=== PATIENT | female | born 1950 | race American Indian/Alaskan Native ===

== ENCOUNTER 2016-11-20 10:12 | Observation (INO) | payer OTHER ==
[2016-11-20 10:12] VITALS: BMI 28.4
--- NOTE | 2016-11-20 11:12 | ED PDOC ---
Arrival/HPI - General Chief Complaint: Abnormal Labs Time Seen by Provider: 11/20/16 10:51 - History of Present Illness Narrative History of Present Illness (Text): 11/20/16 11:09 Patient is a 66 y/o F sent by PMD for dialysis and catheter placement. Patient reports that she has had worsening renal failure and her PMD Dr. Maynard ) requested that she came to ED. She reports history of L arm fistula that no longer works. She denies fever, chest pain, or shortness of breath. 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) - Psychiatric Hx Depression: No Hx Emotional Abuse: No Hx Physical Abuse: No Hx Substance Use: No - Past Surgical History Past Surgical History: No Previous - Suicidal Assessment Feels Threatened In Home Enviroment: No Family/Social History Family/Social History: No Known Family HX Smoking Status: Former Smoker Hx Alcohol Use: No Hx Substance Use: No Hx Substance Use Treatment: No Allergies/Home Meds Allergies/Adverse Reactions: Allergies No Known Allergies Allergy (Verified 11/06/11 11:22) Home Medications: Home Meds Medication Instructions Recorded Confirmed levETIRAcetam [Keppra] 250 mg PO DAILY 08/21/12 11/20/16 Amlodipine Besylate [Amlodipine 10 mg PO DAILY 11/20/16 11/20/16 Besilate] Aspirin [Ecotrin] 81 mg PO DAILY 11/20/16 11/20/16 Bicarbonat 10.3 10.3 gr PO TID 11/20/16 11/20/16 Iron Tabs 325 mg PO BID 11/20/16 11/20/16 Metoprolol Tartrate [Lopressor] 50 mg PO BID 11/20/16 11/20/16 Multivitamin [Multivitamin] 1 sgl PO DAILY 11/20/16 11/20/16 Sodium Polystyrene Sulfon/Sorb 15 gm NA 11/20/16 [Kionex] Vit B Cmplx 3/Folic AC/C/Biot 1 tab PO DAILY 11/20/16 11/20/16 [Vol-Care Rx] Vitamin B Complex [B Complex] 1 each PO DAILY 11/20/16 11/20/16 cloNIDine [Catapres] 0.1 mg PO ONCE 11/20/16 11/20/16 hydrALAZINE [hydralazine 50 mg PO Q6 11/20/16 11/20/16 Hydrochloride] Review of Systems - Review of Systems Constitutional: absent: Fevers Respiratory: absent: SOB, Cough, Sputum, Wheezing Cardiovascular: absent: Chest Pain, Palpitations, Edema, Calf Pain, LEBLANC, Orthopnea, Syncope Gastrointestinal: absent: Abdominal Pain, Constipation, Diarrhea, Nausea, Vomiting Genitourinary Female: absent: Dysuria Musculoskeletal: absent: Arthralgias Physical Exam Vital Signs Temp Pulse Resp BP Pulse Ox 11/20/16 10:30 98.1 F 77 16 242/103 H 98 Temperature: Afebrile Blood Pressure: Hypertensive Pulse: Regular Respiratory Rate: Normal Appearance: Positive for: Well-Appearing, Non-Toxic, Comfortable Pain Distress: None Mental Status: Positive for: Alert and Oriented X 3 - Systems Exam Head: Present: Atraumatic, Normocephalic Pupils: Present: PERRL Extroacular Muscles: Present: EOMI Conjunctiva: Present: Normal Mouth: Present: Moist Mucous Membranes Neck: Present: Normal Range of Motion Respiratory/Chest: Present: Clear to Auscultation, Good Air Exchange. No: Respiratory Distress, Accessory Muscle Use Cardiovascular: Present: Regular Rate and Rhythm, Normal S1, S2. No: Murmurs Abdomen: No: Tenderness, Distention, Rebound, Guarding Upper Extremity: Present: Normal Inspection. No: Edema Medical Decision Making ED Course and Treatment: 11/20/16 11:22 EKG shows NSR at 72bpm with left atrial enlargement and non-specific st changes. No evidence of peaked t waves 11/20/16 11:[address] Dupree. He is requesting Dr. Alex Ku place permacath through IR, with admission to hospitalist with him on renal consult 11/20/16 11:32 Interventional radiology aware that patient needs permacath placement for dialysis. 11/20/16 12:[address] Dc who accepted patient to his service. Chem pending. Labs to be redrawn in IR and then patient to be taken directly to dialysis. Dr. Maynard at bedside and dialysis orders placed. 11/20/16 12:32 11/20/16 12:33 - RAD Interpretation Radiology Orders: 11/20/16 11:32 CAR PERIPHERAL VASCULAR ORDER [VASCULAR] Stat Disposition/Present on Arrival - Present on Arrival Any Indicators Present on Arrival: No History of DVT/PE: No History of Uncontrolled Diabetes: No Urinary Catheter: No History of Decub. Ulcer: No History Surgical Site Infection Following: None - Disposition Have Diagnosis and Disposition been Completed?: Yes Diagnosis: Renal failure Disposition: HOSPITALIZED Disposition Time: 10:30 Patient Plan: Observation Condition: FAIR
--- NOTE | 2016-11-20 12:25 | CP.PCM.CON ---
History of Present Illness - History of Present Illness History of Present Illness: pt is seen and examined, full consult is dictated#[id number] 1. HTn 2. ckd-5 3. FSGS 4. met. acidosis 5. Hyperkalemia 6. anemia clotted left wrst avf and clooted left UE av graft pt agreed for perma cath will plan for hd after catheter d/w ER physician and DR dakota urbina Past Patient History - Infectious Disease Hx of Infectious Diseases: None - Past Social History Smoking Status: Former Smoker - CARDIAC Hx Hypertension: Yes - NEUROLOGICAL Hx Dizziness: Yes - RENAL Hx Chronic Kidney Disease: Yes Hx Renal Failure: Yes - HEMATOLOGICAL/ONCOLOGICAL Hx Cancer: Yes (breast) - MUSCULOSKELETAL/RHEUMATOLOGICAL Hx Falls: No - GENITOURINARY/GYNECOLOGICAL Hx Genitourinary Disorders: (left renal gland tumor removed) - PSYCHIATRIC Hx Depression: No Hx Emotional Abuse: No Hx Physical Abuse: No Hx Substance Use: No - SURGICAL HISTORY Hx Surgeries: Yes (renal gland tumor, ovarian cyst, R breast mastectomy with implant) Meds Allergies/Adverse Reactions: Allergies Allergy/AdvReac Type Severity Reaction Status Date / Time No Known Allergies Allergy Verified 11/06/11 11:22 Results - Vital Signs Recent Vital Signs: Last Vital Signs Temp 98.1 F 11/20/16 10:30 Pulse 77 11/20/16 10:30 Resp 16 11/20/16 10:30 BP 242/103 H 11/20/16 10:30 Pulse Ox 98 11/20/16 10:30 - Labs Result Diagrams: 11/20/16 12:30 11/20/16 12:00
[2016-11-20 12:27] LABS: ALB/GLOB RATIO 1.1 (1.1-1.8); BILIRUBIN,TOTAL 0.4 mg/dL (0.2-1.3); CALCIUM 9.7 mg/dL (8.4-10.5); TOTAL PROTEIN 7.1 g/dL (5.8-8.3)
[2016-11-20] MEDS ORDERED: Lidocaine 2% Inj (20ml) ONE (12:31)
[2016-11-20] MEDS ORDERED: Midazolam 2 MG/2 ML VIAL ONE ×2 (12:32→12:59)
[2016-11-20 12:41] LABS: POTASSIUM 5.7 mmol/L (3.6-5.0)
[2016-11-20 12:54] LABS: ADD MANUAL DIFF? NO
[2016-11-20 13:00] LABS: BASO # 0.02 K/mm3 (0.0-2.0); BASO % 0.3 % (0.0-3.0); EOS # 0.2 (0.0-0.7); EOS % 3.1 % (1.5-5.0); GRAN # 3.34 (1.4-6.5); GRAN % 55.4 % (50.0-68.0); HEMATOCRIT 26.3 % (36.0-48.0); LYMPH % 32.3 % (22.0-35.0); MEAN CORPUSCULAR HEMOGLOBIN 29.4 pg (25.0-35.0); MEAN CORPUSCULAR HGB CONC 32.3 g/dl (31.0-37.0); MEAN PLATELET VOLUME 8.8 fl (7.0-11.0); MONO # 0.5 (0.1-0.6); MONO % 8.9 % (1.0-6.0); PLATELET COUNT 228 10^3/uL (120.0-450.0)
[2016-11-20 13:14] LABS: INR 0.99 (0.93-1.08); PARTIAL THROMBOPLASTIN TIME 27.6 Seconds (23.7-30.8)
--- NOTE | 2016-11-20 15:12 | CARD ---
APPROVED REPORT EKG Measurement Heart [id number] <Conclusion> Normal sinus rhythm Nonspecific T wave abnormality Leftward axis
[2016-11-20 18:06] LABS: PH,URINE 7.5 (4.7-8.0); URINE BILIRUBIN NEGATIVE (NEGATIVE); URINE BLOOD TRACE-INTACT (NEGATIVE); URINE GLUCOSE (UA) NEGATIVE (NEGATIVE); URINE KETONE NEGATIVE (NEGATIVE); URINE LEUKOCYTE ESTERASE NEGATIVE Leu/uL (NEGATIVE); URINE PROTEIN 100 mg/dL (<30 mg/dL); URINE UROBILINOGEN 0.2 E.U./dL (<1 E.U./dL)
[2016-11-20 18:08] LABS: URINE APPEARANCE CLEAR (CLEAR); URINE COLOR YELLOW (YELLOW)
[2016-11-20 18:29] LABS: URINE WBC 0 - 2 /hpf (0-6)
--- NOTE | 2016-11-20 18:52 | CP.PCM.HP ---
<Erich Hayden - Last Filed: 11/20/16 18:41> History of Present Illness - History of Present Illness History of Present Illness: Pt is a 66 year old female with past medical history of CKD stage 5, tumors of kidney, HTN, breast cancer, and seizure who presents to [facility] due to malfunctioning fustula in her left upper extremity. The fistula was placed 1.5 years ago and noted to be clogged. Patient also has a left wrist AV fistula that was placed 1 year ago that was also found to be malfunctioning. Pt reports that her bellows filler advised her to come to the [facility] for perma cath placement and dialysis. Patient received right perma cath and dialysis today. She denies chest pain, shortness of breath, abdominal pain, nausea, vomiting or fever. PMH: ESRD, hx of tumors in Left kidney, HTN, Breast cancer s/p lymph node removal and breast mastectomy, ovarian tumor, seizure PSH: Right breast mastectomy, D&C Allergies: NKDA FMH: - Mother: Kidney disease - Father: Prostate Cancer - Brother: Prostate Cancer, ESRD req dialysis - Brother: Prostate Cancer, ESRD req dialysis - Brother: Lung Cancer - Sister: DM2 - Sister: DM2 Social: Tobacco: Denies, EtOH: Denies, Drugs: hx of THC, cocaine, denies IVDA Meds: Hydralazine 50mg Q6H Levitracetam 250mg Daily Vol-care tab Daily Kionex 15G/60mL Metoprolol Tartrate 50mg BID Amlodipine BEsylate 10mg Daily Clonidine HCl 0.1 mg 2 tab Q8 Iron tablet Aspirin 81mg Daily Super B complex MV MV Present on Admission - Present on Admission Any Indicators Present on Admission: No History of DVT/PE: No History of Uncontrolled Diabetes: No Urinary Catheter: No Decubitus Ulcer Present: No Review of Systems - Hematologic/Lymphatic Additional comments: Constitutional: pt denies fever, chills, generalized weakness ENT: pt denies dysphagia, otalgia, hearing deficit, rhinorrhea Eyes: pt denies sudden loss of vision, diplopia, blurred vision MSK: pt denies muscle stiffness, extremity cramping Cardio: pt denies heart murmur, cp Pulm: pt denies sob, cough, hemoptysis, wheeze GI: pt denies loss of appetite, abdominal pain, constipation, melena, v/d : pt denies burning on urination, urinary frequency, hematuria, urinary urgency Neuro: pt denies dizziness, pt denies paresis, TREVINO, paresthesia, numbness, tingling Derm: pt denies nail changes Endo: pt denies night sweats, pt denies polydipsia Psych: pt denies anxiety, depression, mood changes Past Patient History - Infectious Disease Hx of Infectious Diseases: None - Past Social History Smoking Status: Former Smoker Alcohol: None Drugs: Other (hx of THC and cocaine, denies IVDA) - CARDIAC Hx Hypertension: Yes - NEUROLOGICAL Hx Dizziness: Yes - RENAL Hx Chronic Kidney Disease: Yes Hx Renal Failure: Yes - HEMATOLOGICAL/ONCOLOGICAL Hx Cancer: Yes (breast) - MUSCULOSKELETAL/RHEUMATOLOGICAL Hx Falls: No - GENITOURINARY/GYNECOLOGICAL Hx Genitourinary Disorders: (left renal gland tumor removed) - PSYCHIATRIC Hx Depression: No Hx Emotional Abuse: No Hx Physical Abuse: No Hx Substance Use: No - SURGICAL HISTORY Hx Surgeries: Yes (renal gland tumor, ovarian cyst, R breast mastectomy with implant) Meds Allergies/Adverse Reactions: Allergies Allergy/AdvReac Type Severity Reaction Status Date / Time No Known Allergies Allergy Verified 11/06/11 11:22 Physical Exam - Additional Findings Additional findings: Vital signs as below Constitutional: a&o x 4 Head and Neck: right perma cath placed with dressing c/d/i, neck supple, no jvd , trachea midline, carotid midline, no cervical/head mass Eyes: gus, nonicteric sclera, eom intact ENT: auditory acuity grossly intact, throat not congested, no nasal deformity Cardio: rrr, no m/r/g, no carotid bruit, nml s1, s2 Pulm: no accessory muscle use, equal nml breath sounds bilaterally, ctab Abd: s/nt/nd, nbs x 4 q, no palpable masses Derm: no rashes, no ulcers Extr: No pitting edema, no cyanosis, no calf tenderness, LUE and Left forearm with AVF Neuro: cn II-XII grossly intact, ue and le 5/5 muscle strength bilaterally, no los ue, le bilaterally and core Results - Vital Signs Recent Vital Signs: Last Vital Signs Temp 98 F 11/20/16 14:09 Pulse 74 11/20/16 16:56 Resp 14 11/20/16 14:09 BP 227/92 H 11/20/16 16:56 Pulse Ox 100 11/20/16 14:09 - Labs Result Diagrams: 11/20/16 12:30 11/20/16 12:00 Labs: Laboratory Results - last 24 hr 11/20/16 11/20/16 11/20/16 12:30 12:30 12:30 WBC 6.0 RBC 2.89 L Hgb 8.5 L Hct 26.3 L MCV 91.0 MCH 29.4 MCHC 32.3 RDW 13.0 Plt Count 228 MPV 8.8 Gran % 55.4 Lymph % (Auto) 32.3 [place] % (Auto) 8.9 H Eos % (Auto) 3.1 Baso % (Auto) 0.3 Gran # 3.34 Lymph # 2.0 [place] # 0.5 Eos # 0.2 Baso # 0.02 PT 10.7 INR 0.99 APTT 27.6 Urine Color Urine Appearance Urine pH Ur Specific [place] Urine Protein Urine Glucose (UA) Urine Ketones Urine Blood Urine Nitrate Urine Bilirubin Urine Urobilinogen Ur Leukocyte Esterase Urine RBC Urine WBC Blood Type B POSITIVE Blood Type Confirm Antibody Screen Negative BBK History Checked No verified bt 11/20/16 11/20/16 12:58 17:30 WBC RBC Hgb Hct MCV MCH MCHC RDW Plt Count MPV Gran % Lymph % (Auto) [place] % (Auto) Eos % (Auto) Baso % (Auto) Gran # Lymph # [place] # Eos # Baso # PT INR APTT Urine Color Yellow Urine Appearance Clear Urine pH 7.5 Ur Specific [place] 1.015 Urine Protein 100 H Urine Glucose (UA) Negative Urine Ketones Negative Urine Blood Trace-intact H Urine Nitrate Negative Urine Bilirubin Negative Urine Urobilinogen 0.2 Ur Leukocyte Esterase Negative Urine RBC 1 - 3 Urine WBC 0 - 2 Blood Type Blood Type Confirm B POSITIVE Antibody Screen BBK History Checked Assessment & Plan - Assessment and Plan (Free Text) Assessment: Pt is a 66 year old female who presents for perma cath placement and HD Plan: 1. ESRD - Perma cath placement today - HD today, revaluation labs s/p dialysis - Case management referral - metalworker referral - Nephro following appreciate recommendations - Patient to be setup for outpatient dialysis 2. Hypertension - Amlodipine 10mg Daily - Metoprolol Tartate 50mg BID - Clonidine HCl 0.1mg 2 tabs Q8 3. Anemia - Likely 2/2 ESRD - Continue Iron supplementation - Follow up with nephro regarding rec 4. History of seizure disorder - Continue Keppra 5. GI/DVT ppx - Protonix - SCD - Date & Time Date: 11/20/16 Time: 19:03 <Mirella MARTINEZ,Elmer - Last Filed: 11/24/16 08:31> Results - Vital Signs Recent Vital Signs: Last Vital Signs Temp 97.8 F 11/22/16 00:00 Pulse 70 11/22/16 15:39 Resp 20 11/22/16 00:00 BP 146/80 11/22/16 15:39 Pulse Ox 100 11/22/16 00:00 - Labs Result Diagrams: 11/22/16 06:45 11/22/16 06:45 Attending/Attestation - Attestation I have personally seen and examined this patient.: Yes I have fully participated in the care of the patient.: Yes I have reviewed all pertinent clinical information: Yes Notes (Text): 11/24/16 08:27 Patient was seen and examined with medical research scientist. 66 F with PMH of HTN,Stage V CKD, never was on dialysis was admitted with clotted left wrist AV Fistula graft, underwent dialysis catheter placement by IR today, She is currently getting her first hemodialysis right now and is tolerating it well, Blood pressure was high in ER, relatively better controlled in dialysis, We will repeat Potassium level after hemodialysis. She can be discharged home tomarrow after dialysis plan is made. (Customer Insight Analyst [place]) Management plan was discussed in detail with patient.Education was provided.
--- NOTE | 2016-11-20 19:22 | VASCULAR ---
PROCEDURE: Ultrasound and fluoroscopic tunneled right IJ dialysis catheter. CLINICAL HISTORY: ESRD PHYSICIAN(S): Alex Ku M.D. TECHNIQUE: The relative risks and indications for the procedure were explained to the patient and informed written consent obtained. The patient was placed supine on the arteriography table and the right neck/chest was prepped and draped in the usual sterile fashion. 1% Xylocaine was used to anesthetize the skin and soft tissues at the puncture site. Conscious sedation and monitoring were provided throughout the procedure by a nurse. Under direct ultrasound guidance, the rightinternal jugular vein was punctured with a micropuncture set. A 0.035 Glidewire was advanced into the IVC. Sequential dilatation was performed with subsequent placement of a 28cm López II catheter with its tip in the right atrium. A retrograde tunnel below the right clavicle was performed. The catheter was trimmed and the hub attached. Both ports aspirate and inject easily. The catheter was secured and a dressing applied. The patient tolerated the procedure well. IMPRESSION: 1. Ultrasound and fluoroscopically placed right IJ tunneled dialysis catheter.
[2016-11-21 07:20] LABS: ADD MANUAL DIFF? NO
[2016-11-21 07:28] LABS: BASO # 0.02 K/mm3 (0.0-2.0); BASO % 0.3 % (0.0-3.0); EOS # 0.2 (0.0-0.7); EOS % 3.5 % (1.5-5.0); GRAN # 3.51 (1.4-6.5); GRAN % 57.9 % (50.0-68.0); HEMATOCRIT 27.2 % (36.0-48.0); LYMPH # 1.6 (1.2-3.4); LYMPH % 25.9 % (22.0-35.0); MEAN CELL VOLUME 90.7 fL (80.0-105.0); MEAN CORPUSCULAR HEMOGLOBIN 29.3 pg (25.0-35.0); MEAN CORPUSCULAR HGB CONC 32.4 g/dl (31.0-37.0); MEAN PLATELET VOLUME 8.5 fl (7.0-11.0); MONO # 0.8 (0.1-0.6); MONO % 12.4 % (1.0-6.0); PLATELET COUNT 214 10^3/uL (120.0-450.0); WHITE BLOOD COUNT 6.1 10^3/ul (4.5-11.0)
[2016-11-21 08:05] LABS: ALB/GLOB RATIO 1.1 (1.1-1.8); BILIRUBIN,TOTAL 0.4 mg/dL (0.2-1.3); CALCIUM 9.3 mg/dL (8.4-10.5); POTASSIUM 5.3 mmol/L (3.6-5.0); TOTAL PROTEIN 6.8 g/dL (5.8-8.3)
[2016-11-21] MEDS: Multivitamin Therapeutic Tab PO SCH (10:24)
--- NOTE | 2016-11-21 11:16 | CP.PCM.PN ---
<FenggregErich - Last Filed: 11/21/16 13:19> Subjective - Date & Time of Evaluation Date of Evaluation: 11/21/16 Time of Evaluation: 11:13 - Subjective Subjective: Patient is s/e at bedside on GMF. No acute events reported overnight. Pt has no complaints at this time. Pt denies chest pain, palpatations, shortness of breath , muscle weakness, nausea, vomitng and fever. Will be discussing with CM and SW placement for patient's continued HD outpatient. Objective - Vital Signs/Intake and Output Vital Signs (last 24 hours): Temp Pulse Resp BP Pulse Ox 98.3 F 70 16 220/120 H 94 L 11/21/16 07:59 11/21/16 10:23 11/21/16 07:59 11/21/16 10:24 11/21/16 07:59 Intake and Output: 11/21/16 11/21/16 06:59 18:59 Intake Total 120 Balance 120 - Medications Medications: Current Medications Acetaminophen (Tylenol 325mg Tab) 650 mg PO Q4 PRN PRN Reason: Pain, Mild (1-3) Last Admin: 11/21/16 05:47 Dose: 650 mg Amlodipine Besylate (Norvasc) 10 mg PO DAILY [facility] Last Admin: 11/21/16 10:24 Dose: 10 mg Aspirin (Ecotrin) 81 mg PO DAILY [facility] Last Admin: 11/21/16 10:22 Dose: 81 mg Clonidine HCl (Catapres) 0.2 mg PO TID [facility] Ferrous Sulfate (Feosol) 324 mg PO BID [facility] Last Admin: 11/21/16 10:22 Dose: 324 mg Hydralazine HCl (Apresoline) 50 mg PO Q6 [facility] Last Admin: 11/21/16 05:47 Dose: 50 mg Levetiracetam (Keppra) 250 mg PO DAILY [facility] Last Admin: 11/21/16 10:23 Dose: 250 mg Metoprolol Tartrate (Lopressor) 50 mg PO BID [facility] Last Admin: 11/21/16 10:23 Dose: 50 mg Multivitamins (Thera Tab) 1 tab PO DAILY [facility] Last Admin: 11/21/16 10:24 Dose: 1 tab Sodium Bicarbonate (Sodium Bicarbonate Tab) 650 mg PO TID [facility] Last Admin: 11/21/16 10:24 Dose: 650 mg - Labs Labs: 11/21/16 07:10 11/21/16 07:10 PT 10.7 Seconds (9.9-11.8) 11/20/16 12:30 INR 0.99 (0.93-1.08) 11/20/16 12:30 APTT 27.6 Seconds (23.7-30.8) 11/20/16 12:30 - Head Exam Head Exam: ATRAUMATIC, NORMAL INSPECTION - Eye Exam Eye Exam: EOMI, PERRL - ENT Exam ENT Exam: Mucous Membranes Moist, Normal Exam - Neck Exam Additional comments: right perma cath placed with dressing c/d/i - Respiratory Exam Respiratory Exam: Clear to Ausculation Bilateral, NORMAL BREATHING PATTERN - Cardiovascular Exam Cardiovascular Exam: REGULAR RHYTHM, +S1, +S2, Murmur (grade 3/6 systolic ejection murmur) - Rectal Exam Rectal Exam: Deferred - Extremities Exam Extremities Exam: Full ROM, Normal Capillary Refill, Normal Inspection - Neurological Exam Neurological Exam: Alert, Awake, CN II-XII Intact, Oriented x3 Neuro motor strength exam: Left Upper Extremity: 5, Right Upper Extremity: 5, Left Lower Extremity: 5, Right Lower Extremity: 5 - Psychiatric Exam Psychiatric exam: Normal Affect, Normal Mood - Skin Skin Exam: Dry, Normal Color, Warm Assessment and Plan - Assessment and Plan (Free Text) Assessment: Pt is a 66 year old female who presents for perma cath placement and HD Plan: 1. ESRD - Perma cath placement POD#1 - Lacquer Dipping Machine Operator following with recommendations for HD outpatient - notes indicate patient to receive HD outpatient at [facility] [address] - Low potassium diet - revaluation labs s/p dialysis patient potassium 5.2 - Case management referral - drug abuse social worker referral 2. Hypertension - Amlodipine 10mg Daily - Metoprolol Tartate 50mg BID - Clonidine HCl 0.1mg 2 tabs Q8 3. Anemia - Likely 2/2 ESRD - Continue Iron supplementation 4. History of seizure disorder - Continue Keppra 5. GI/DVT ppx - Protonix - SCD <Facundo Diggs - Last Filed: 11/22/16 16:27> Objective - Vital Signs/Intake and Output Vital Signs (last 24 hours): Temp Pulse Resp BP Pulse Ox 97.8 F 70 20 146/80 100 11/22/16 00:00 11/22/16 15:39 11/22/16 00:00 11/22/16 15:39 11/22/16 00:00 Intake and Output: 11/22/16 11/22/16 06:59 18:59 Intake Total 310 480 Balance 310 480 - Medications Medications: Current Medications Acetaminophen (Tylenol 325mg Tab) 650 mg PO Q4 PRN PRN Reason: Pain, Mild (1-3) Last Admin: 11/22/16 15:23 Dose: 650 mg Amlodipine Besylate (Norvasc) 10 mg PO DAILY [facility] Last Admin: 11/22/16 10:30 Dose: 10 mg Aspirin (Ecotrin) 81 mg PO DAILY [facility] Last Admin: 11/22/16 10:30 Dose: 81 mg Clonidine HCl (Catapres) 0.2 mg PO TID [facility] Last Admin: 11/22/16 15:39 Dose: 0.2 mg Ferrous Sulfate (Feosol) 324 mg PO BID [facility] Last Admin: 11/22/16 10:29 Dose: 324 mg Hydralazine HCl (Apresoline) 100 mg PO TID [facility] Last Admin: 11/22/16 15:38 Dose: 100 mg Levetiracetam (Keppra) 250 mg PO DAILY [facility] Last Admin: 11/22/16 10:30 Dose: 250 mg Metoprolol Tartrate (Lopressor) 50 mg PO BID [facility] Last Admin: 11/22/16 10:30 Dose: 50 mg Multivitamins (Thera Tab) 1 tab PO DAILY [facility] Last Admin: 11/22/16 10:29 Dose: 1 tab - Labs Labs: 11/22/16 06:45 11/22/16 06:45 PT 10.7 Seconds (9.9-11.8) 11/20/16 12:30 INR 0.99 (0.93-1.08) 11/20/16 12:30 APTT 27.6 Seconds (23.7-30.8) 11/20/16 12:30 Attending/Attestation - Attestation I have personally seen and examined this patient.: Yes I have fully participated in the care of the patient.: Yes I have reviewed all pertinent clinical information, including history, physical exam and plan: Yes Notes (Text): 11/22/16 16:23 attending note; Patient seen and examined with resident. Patient is a 66-year-old female admitted with clotted AVF. patient got right perma cath for hemodialysis. patient had hemodialysis yesterday. Hypertension; Medication adjusted. Started on hydralazine. Continue clonidine. Plan for dialysis tomorrow. Case discussed with supervisor case loading/social work assistant for outpatient hemodialysis arrangements. Follow-up with nephrology Dr. Dupree. follow-up with PMD .
--- NOTE | 2016-11-21 12:24 | CP.PCM.PN ---
Subjective - Date & Time of Evaluation Date of Evaluation: 11/21/16 Time of Evaluation: 12:22 - Subjective Subjective: pt seen and examined, follow up consult is dictated #[id number] for hd in am low k+ diet social service to make referral to HD at [facility], [facility] or [facility] dialysis center if insurance approves Objective - Vital Signs/Intake and Output Vital Signs (last 24 hours): Temp Pulse Resp BP Pulse Ox 98.3 F 69 16 210/110 H 94 L 11/21/16 07:59 11/21/16 11:38 11/21/16 07:59 11/21/16 11:38 11/21/16 07:59 Intake and Output: 11/21/16 11/21/16 06:59 18:59 Intake Total 120 Balance 120 - Medications Medications: Current Medications Acetaminophen (Tylenol 325mg Tab) 650 mg PO Q4 PRN PRN Reason: Pain, Mild (1-3) Last Admin: 11/21/16 05:47 Dose: 650 mg Amlodipine Besylate (Norvasc) 10 mg PO DAILY [facility] Last Admin: 11/21/16 10:24 Dose: 10 mg Aspirin (Ecotrin) 81 mg PO DAILY [facility] Last Admin: 11/21/16 10:22 Dose: 81 mg Clonidine HCl (Catapres) 0.2 mg PO TID [facility] Last Admin: 11/21/16 11:38 Dose: 0.2 mg Ferrous Sulfate (Feosol) 324 mg PO BID [facility] Last Admin: 11/21/16 10:22 Dose: 324 mg Hydralazine HCl (Apresoline) 50 mg PO Q6 [facility] Last Admin: 11/21/16 05:47 Dose: 50 mg Levetiracetam (Keppra) 250 mg PO DAILY [facility] Last Admin: 11/21/16 10:23 Dose: 250 mg Metoprolol Tartrate (Lopressor) 50 mg PO BID [facility] Last Admin: 11/21/16 10:23 Dose: 50 mg Multivitamins (Thera Tab) 1 tab PO DAILY [facility] Last Admin: 11/21/16 10:24 Dose: 1 tab Sodium Bicarbonate (Sodium Bicarbonate Tab) 650 mg PO TID [facility] Last Admin: 11/21/16 10:24 Dose: 650 mg - Labs Labs: 11/21/16 07:10 11/21/16 07:10 PT 10.7 Seconds (9.9-11.8) 11/20/16 12:30 INR 0.99 (0.93-1.08) 11/20/16 12:30 APTT 27.6 Seconds (23.7-30.8) 11/20/16 12:30
[2016-11-21 20:46] VITALS: TEMP 97.8
--- NOTE | 2016-11-22 04:57 | CON ---
RENAL CONSULTATION LOCATION: The patient is located in room 566, bed 2. REQUESTED BY: Facundo Diggs MD and Saira Dc MD. REASON FOR FOLLOWUP: End stage renal disease, continuous on the hemodialysis. HISTORY OF PRESENT ILLNESS: Mrs. Adams is a 66-year-old elderly female with a past medical history significant for hypertension, end-stage renal disease, anemia, metabolic acidosis, and hyperkalemia, was admitted with worsening renal function and failed left upper extremity AV graft and AV fistula, which was placed about 6 to 12 months ago. The patient underwent PermaCath placement yesterday and started on hemodialysis. The patient is feeling better, denies any headache, dizziness. Denies any chest pain, palpitation. Denies any nausea, vomiting, diarrhea. No abdominal pain. Complains of slight pain at the PermaCath site. PHYSICAL EXAMINATION: VITAL SIGNS: As follows, blood pressure this morning 139/86, pulse 65, respirations 16, temperature 98.3, saturations 94%, height 5 feet 2.1 inch and weight is 177 pounds. GENERAL: Mrs. Adams is a 66-year-old female, moderately built, moderately nourished, not in distress. HEENT: Pupils normal, react to light and accommodation. Conjunctivae pink. Sclerae anicteric. Tongue is moist. Trachea is midline. LUNGS: Symmetry on both sides, bilateral breath sounds present and clear on auscultation. CARDIOVASCULAR SYSTEM: [place] at the fifth intercostal space, midclavicular line, S1 and S2 audible. No murmur or gallop. ABDOMEN: Normal in appearance. Soft and tympanic. No guarding. No rigidity. No hepatosplenomegaly. CENTRAL NERVOUS SYSTEM: The patient is alert, awake, and oriented x3. Nonfocal neuro examination. Cranial nerves II through XII grossly intact. Sensory and motor system is within normal limits. EXTREMITIES: No cyanosis. No clubbing. No edema. CURRENT MEDICATIONS: Include as follows; hydralazine 50 mg p.o. q.6 hours, clonidine 0.2 mg p.o. t.i.d., Ecotrin 81 mg p.o. daily, Feosol 325 mg p.o. b.i.d, Keppra 250 mg p.o. daily, Lopressor 50 mg p.o. b.i.d, Norvasc 10 mg daily, sodium bicarbonate 650 mg t.i.d., multivitamin 1 tablet p.o. daily and Tylenol 650 mg p.o. q.6 hours. LABORATORY DATA: Includes as follows; as of 11/21/2016, WBC 6.1, hemoglobin 8.8, hematocrit 27.2, platelets 214. Sodium 140, potassium 5.3, chloride 103, CO2 of 27, BUN 47, creatinine 5.2, glucose is 100, calcium 9.3. Total bilirubin 0.4, AST is 30, ALT is 24, alkaline phosphate is 67, total protein 6.8, albumin is 3.6. Urinalysis, yellow, clear and pH is 7.5, specific gravity 1.015, protein 100,glucose negative, ketones negative, blood trace, nitrites negative, bilirubin negative, urobilinogen is 0.2, leukocyte esterase negative. RBC 123, WBC 0 to 2. Hepatitis B surface antigen is negative, surface antibody is negative, hepatitis B core antibody is negative, hepatitis C antibody is negative. ASSESSMENT AND PLAN: In summary, Mrs. Adams is a 66-year-old elderly obese female with hypertension, chronic kidney disease stage V with worsening renal function, hyperkalemia, metabolic acidosis, anemia and secondary hyperparathyroidism, started on hemodialysis yesterday. 1. End-stage renal disease, secondary focal segmental glomerulosclerosis. Continue on hemodialysis 3 times a week. 2. Hypertension, blood pressure still uncontrolled. Continue Norvasc, Lopressor, hydralazine and clonidine, and titrate clonidine to 0.3 mg p.o. q.8 hours, to keep blood pressure between 130 to 140. 3. Anemia, secondary to renal failure. We will check iron, TIBC, ferritin level during dialysis. We will continue Epogen 3 times a week during dialysis. Requested as per the patient to send papers to [facility] and [facility]. The patient is agreeable to go to [facility] at this time. Also advised a low-sodium, low-potassium diet. We will follow with you. Thank you for allowing me to participate in your patient's care. Jorge L Maynard MD [facility] # [id number] MTDD
[2016-11-22] MEDS ORDERED: Darbepoetin Alfa 60 mcg/ml Inj SC ONE (06:27)
[2016-11-22 07:16] LABS: ADD MANUAL DIFF? NO
[2016-11-22 07:23] LABS: BASO # 0.02 K/mm3 (0.0-2.0); BASO % 0.3 % (0.0-3.0); EOS # 0.2 (0.0-0.7); EOS % 3.5 % (1.5-5.0); GRAN # 2.71 (1.4-6.5); GRAN % 45.6 % (50.0-68.0); HEMATOCRIT 26.3 % (36.0-48.0); LYMPH # 2.2 (1.2-3.4); LYMPH % 37.3 % (22.0-35.0); MEAN CORPUSCULAR HEMOGLOBIN 29.1 pg (25.0-35.0); MEAN CORPUSCULAR HGB CONC 31.9 g/dl (31.0-37.0); MEAN PLATELET VOLUME 8.8 fl (7.0-11.0); MONO # 0.8 (0.1-0.6); MONO % 13.3 % (1.0-6.0); PLATELET COUNT 196 10^3/uL (120.0-450.0)
[2016-11-22 07:32] LABS: BILIRUBIN,TOTAL 0.4 mg/dL (0.2-1.3); CALCIUM 9.3 mg/dL (8.4-10.5); POTASSIUM 4.9 mmol/L (3.6-5.0); TOTAL PROTEIN 6.7 g/dL (5.8-8.3)
--- NOTE | 2016-11-22 07:46 | CP.PCM.PN ---
<Erich Hayden - Last Filed: 11/22/16 07:48> Subjective - Date & Time of Evaluation Date of Evaluation: 11/22/16 Time of Evaluation: 07:46 - Subjective Subjective: Patient s/e at bedside on F this AM. No acute events overnight. Patient is resting comfortably. No complaints at this time. Patient denies chest pain, shortness of breath, fever, neck pain, weakness and headache. Patient's discharge is pending placement at [facility] in [place] for scheduled outpatient HD. Objective - Vital Signs/Intake and Output Vital Signs (last 24 hours): Temp Pulse Resp BP Pulse Ox 97.8 F 78 18 147/80 98 11/21/16 16:00 11/22/16 05:32 11/21/16 16:00 11/22/16 05:32 11/21/16 16:00 Intake and Output: 11/22/16 11/22/16 06:59 18:59 Intake Total 310 Balance 310 - Medications Medications: Current Medications Acetaminophen (Tylenol 325mg Tab) 650 mg PO Q4 PRN PRN Reason: Pain, Mild (1-3) Last Admin: 11/21/16 05:47 Dose: 650 mg Amlodipine Besylate (Norvasc) 10 mg PO DAILY [facility] Last Admin: 11/21/16 10:24 Dose: 10 mg Aspirin (Ecotrin) 81 mg PO DAILY [facility] Last Admin: 11/21/16 10:22 Dose: 81 mg Clonidine HCl (Catapres) 0.2 mg PO TID [facility] Last Admin: 11/21/16 18:01 Dose: 0.2 mg Ferrous Sulfate (Feosol) 324 mg PO BID [facility] Last Admin: 11/21/16 18:01 Dose: 324 mg Hydralazine HCl (Apresoline) 50 mg PO Q6 [facility] Last Admin: 11/22/16 05:32 Dose: 50 mg Levetiracetam (Keppra) 250 mg PO DAILY [facility] Last Admin: 11/21/16 10:23 Dose: 250 mg Metoprolol Tartrate (Lopressor) 50 mg PO BID [facility] Last Admin: 11/21/16 18:03 Dose: 50 mg Multivitamins (Thera Tab) 1 tab PO DAILY [facility] Last Admin: 11/21/16 10:24 Dose: 1 tab - Labs Labs: 11/22/16 06:45 11/22/16 06:45 PT 10.7 Seconds (9.9-11.8) 11/20/16 12:30 INR 0.99 (0.93-1.08) 11/20/16 12:30 APTT 27.6 Seconds (23.7-30.8) 11/20/16 12:30 - Head Exam Head Exam: ATRAUMATIC, NORMAL INSPECTION - Eye Exam Eye Exam: EOMI, Normal appearance - ENT Exam ENT Exam: Mucous Membranes Moist, Normal Exam - Neck Exam Neck Exam: Full ROM, Normal Inspection - Respiratory Exam Respiratory Exam: Clear to Ausculation Bilateral, NORMAL BREATHING PATTERN - Cardiovascular Exam Cardiovascular Exam: REGULAR RHYTHM, +S1, +S2. absent: JVD - GI/Abdominal Exam GI & Abdominal Exam: Soft, Normal Bowel Sounds - Rectal Exam Rectal Exam: Deferred - Extremities Exam Extremities Exam: Full ROM, Normal Capillary Refill, Normal Inspection - Neurological Exam Neurological Exam: Alert, Awake, CN II-XII Intact, Oriented x3 Neuro motor strength exam: Left Upper Extremity: 5, Right Upper Extremity: 5, Left Lower Extremity: 5, Right Lower Extremity: 5 - Psychiatric Exam Psychiatric exam: Normal Affect, Normal Mood - Skin Skin Exam: Dry, Warm Additional comments: right perma cath placement with dressing c/d/i Assessment and Plan (1) Renal failure Status: Acute (2) Hypertensive heart AND renal disease Status: Active - Assessment and Plan (Free Text) Assessment: Pt is a 66 year old female who presents for perma cath placement and HD Plan: 1. ESRD - Perma cath placement POD#2 - [employer] following with recommendations for HD outpatient - notes indicate patient to receive HD outpatient at [facility] av - Low potassium diet - Case management referral - construction ironworker referral 2. Hypertension - Amlodipine 10mg Daily - Metoprolol Tartate 50mg BID - Clonidine HCl 0.1mg 2 tabs Q8 3. Anemia - Likely 2/2 ESRD - Continue Iron supplementation 4. History of seizure disorder - Continue Keppra 5. GI/DVT ppx - Protonix - SCD dspo: Patient is awating placement at outpatient dialysis unit at [facility] in [place]. She will be scheduled for dialysis at [facility] with planned follow up with her route jumper outpatient. <Facundo Diggs - Last Filed: 11/23/16 07:38> Objective - Vital Signs/Intake and Output Vital Signs (last 24 hours): Temp Pulse Resp BP Pulse Ox 97.8 F 70 20 146/80 100 11/22/16 00:00 11/22/16 15:39 11/22/16 00:00 11/22/16 15:39 11/22/16 00:00 - Labs Labs: 11/22/16 06:45 11/22/16 06:45 PT 10.7 Seconds (9.9-11.8) 11/20/16 12:30 INR 0.99 (0.93-1.08) 11/20/16 12:30 APTT 27.6 Seconds (23.7-30.8) 11/20/16 12:30 Attending/Attestation - Attestation I have personally seen and examined this patient.: Yes I have fully participated in the care of the patient.: Yes I have reviewed all pertinent clinical information, including history, physical exam and plan: Yes Notes (Text): 11/23/16 07:36 attending note; Patient seen and examined in dialysis unit. Patient is a 66-year-old female admitted with Malfunctioning AVF. patient got right perma cath for hemodialysis. patient had hemodialysis today. Outpatient hemodialysis arranged for Sunday, and Sunday at [facility]. Hypertension; Medication adjusted. Started on hydralazine. Continue clonidine. Medication prescription called in to the family pharmacy at [facility]. [phone] as per patient's request. Case discussed with shoe parts caser/renal social worker in detail for discharge planning. Follow-up with nephrology Dr. Dupree. follow-up with PMD . Diagnosis; End-stage renal disease on dialysis Right permacath placement Malfunctioning AV fistula Hypertension Anemia
[2016-11-22 08:25] VITALS: RESP 20; O2SAT 100
[2016-11-22] MEDS: Multivitamin Therapeutic Tab PO SCH (10:29)
[2016-11-22] MEDS ORDERED: Darbepoetin Alfa 60 mcg/ml Inj IVP ONE (12:36)
[2016-11-22 15:41] VITALS: BP 146/80; PULSE 70
--- NOTE | 2016-11-22 16:46 | CP.PCM.PN ---
Subjective - Date & Time of Evaluation Date of Evaluation: 11/22/16 Time of Evaluation: 16:46 - Subjective Subjective: pt seen nad examined, follow up consult is dictated#[id number] stable hd tx Objective - Vital Signs/Intake and Output Vital Signs (last 24 hours): Temp Pulse Resp BP Pulse Ox 97.8 F 70 20 146/80 100 11/22/16 00:00 11/22/16 15:39 11/22/16 00:00 11/22/16 15:39 11/22/16 00:00 Intake and Output: 11/22/16 11/22/16 06:59 18:59 Intake Total 310 480 Balance 310 480 - Medications Medications: Current Medications Acetaminophen (Tylenol 325mg Tab) 650 mg PO Q4 PRN PRN Reason: Pain, Mild (1-3) Last Admin: 11/22/16 15:23 Dose: 650 mg Amlodipine Besylate (Norvasc) 10 mg PO DAILY [facility] Last Admin: 11/22/16 10:30 Dose: 10 mg Aspirin (Ecotrin) 81 mg PO DAILY [facility] Last Admin: 11/22/16 10:30 Dose: 81 mg Clonidine HCl (Catapres) 0.2 mg PO TID [facility] Last Admin: 11/22/16 15:39 Dose: 0.2 mg Ferrous Sulfate (Feosol) 324 mg PO BID [facility] Last Admin: 11/22/16 10:29 Dose: 324 mg Hydralazine HCl (Apresoline) 100 mg PO TID [facility] Last Admin: 11/22/16 15:38 Dose: 100 mg Levetiracetam (Keppra) 250 mg PO DAILY [facility] Last Admin: 11/22/16 10:30 Dose: 250 mg Metoprolol Tartrate (Lopressor) 50 mg PO BID [facility] Last Admin: 11/22/16 10:30 Dose: 50 mg Multivitamins (Thera Tab) 1 tab PO DAILY [facility] Last Admin: 11/22/16 10:29 Dose: 1 tab - Labs Labs: 11/22/16 06:45 11/22/16 06:45 PT 10.7 Seconds (9.9-11.8) 11/20/16 12:30 INR 0.99 (0.93-1.08) 11/20/16 12:30 APTT 27.6 Seconds (23.7-30.8) 11/20/16 12:30
--- NOTE | 2016-11-23 03:09 | CON ---
RENAL CONSULTATION The patient is located in room 566, bed #2. REQUESTED BY: Facundo Diggs MD REASON FOR RENAL FOLLOWUP: End-stage renal disease, continuation of the hemodialysis. HISTORY OF PRESENT ILLNESS: Mrs. Adams is 66 years old elderly female with a history of hypertension, CKD 5, anemia, metabolic acidosis, hyperkalemia was admitted with the worsened renal function with failed AV graft and AV fistula on the left upper extremity and agreed for hemodialysis and PermCath placement. The patient underwent PermCath placement on Sunday and started on hemodialysis on Sunday. The patient was accepted for outpatient hemodialysis at [facility]. The patient is feeling better, not in acute distress. No complaints. No chest pain, no palpitation. No fever. No cough. PHYSICAL EXAMINATION: VITAL SIGNS: As follows, blood pressure 146/80, pulse 70, respirations 20 and temperature 97.6. GENERAL: Mrs. Adams is 66 years old female, moderately-built, moderately-nourished, not in acute distress. HEENT: Pupils are normal, reactive to light and accommodation. Conjunctivae pink. Sclerae anicteric. Tongue is moist. Trachea is midline. LUNGS: Symmetry on both sides, bilateral breath sounds present and clear on auscultation. CARDIOVASCULAR SYSTEM: [place] at the fifth intercostal space, midclavicular line, S1 and S2 audible. No murmur or gallop. ABDOMEN: Normal in appearance. Soft and tympanic. No guarding. No rigidity. No hepatosplenomegaly. CENTRAL NERVOUS SYSTEM: The patient is alert, awake, and oriented x3. Nonfocal on examination. Cranial nerves II through XII grossly intact. Sensory and motor system is within normal limits. EXTREMITIES: No cyanosis. No clubbing. No edema. CURRENT MEDICATIONS: Includes as follows; Nephrocaps 1 tablet daily, iron tablet 325 mg p.o. b.i.d., aspirin 81 mg daily, amlodipine 10 mg daily, metoprolol 50 mg p.o. b.i.d., hydralazine 100 mg p.o. t.i.d. and clonidine 0.2 mg p.o. t.i.d. LABORATORY DATA: Includes as follows; as of 11/22/2016, WBC 6, hemoglobin 8.1, hematocrit 26.3 and platelets 196. Sodium 138, potassium 4.9, chloride 102, CO2 of 25, BUN 65, creatinine 6.6, glucose 104 and calcium 9.3. Total bilirubin 0.4, AST 28, ALT 25, alkaline phosphate 59, total protein 6.7 and albumin is 3.4. Hepatitis B surface antigen is negative, surface antibody is negative, core antibody is negative and hepatitis C antibody is negative. ASSESSMENT: In summary, Mrs. Adams is 66 years old elderly female with hypertension, focal segmental glomerulosclerosis renal failure, anemia, metabolic acidosis, hyperkalemia, secondary hyperparathyroidism, started on hemodialysis on 11/20/2016. The patient underwent hemodialysis today without any complication. 1. End-stage renal disease, continue hemodialysis three times a week, Sunday, Sunday and Sunday. The patient will start next dialysis on Sunday at outpatient dialysis center. 2. Hypertension. Blood pressure is stable. Continue her current medications, metoprolol, Norvasc, hydralazine and clonidine. 3. Anemia secondary to renal failure. We will continue Epogen or Mircera as an outpatient. 4. Secondary hyperparathyroidism. We will monitor PTH and calcium level and vitamin D as needed. We will follow with you. Thank you for allow me to participate in your patient's care. The patient can be discharge from the renal stand point and will followup in outpatient dialysis unit on Sunday. Jorge L Maynard MD
--- NOTE | 2016-11-24 19:28 | CP.PCM.DIS ---
<FengemmanuelleErich - Last Filed: 11/24/16 19:25> Provider - Provider Date of Admission: 11/20/16 12:28 Attending physician: Facundo Diggs MD Primary care physician: Colby Norman MD Time Spent in preparation of Discharge (in minutes): 30 Diagnosis - Discharge Diagnosis (1) Renal failure Status: Acute (2) Hypertensive heart AND renal disease Status: Active Hospital Course - Lab Results Lab Results: Micro Results 11/20/16 17:30 Urine,Random Urine Culture - Final No Growth (<1,000 CFU/ML) Most Recent Lab Values WBC 6.0 10^3/ul (4.5-11.0) 11/22/16 06:45 RBC 2.89 10^6/uL (3.5-6.1) L 11/22/16 06:45 Hgb 8.4 gm/dL (12.0-16.0) L 11/22/16 06:45 Hct 26.3 % (36.0-48.0) L 11/22/16 06:45 MCV 91.0 fL (80.0-105.0) 11/22/16 06:45 MCH 29.1 pg (25.0-35.0) 11/22/16 06:45 MCHC 31.9 g/dl (31.0-37.0) 11/22/16 06:45 RDW 13.0 % (11.5-14.5) 11/22/16 06:45 Plt Count 196 10^3/uL (120.0-450.0) 11/22/16 06:45 MPV 8.8 fl (7.0-11.0) 11/22/16 06:45 Gran % 45.6 % (50.0-68.0) L 11/22/16 06:45 Lymph % (Auto) 37.3 % (22.0-35.0) H 11/22/16 06:45 [place] % (Auto) 13.3 % (1.0-6.0) H 11/22/16 06:45 Eos % (Auto) 3.5 % (1.5-5.0) 11/22/16 06:45 Baso % (Auto) 0.3 % (0.0-3.0) 11/22/16 06:45 Gran # 2.71 (1.4-6.5) 11/22/16 06:45 Lymph # 2.2 (1.2-3.4) 11/22/16 06:45 [place] # 0.8 (0.1-0.6) H 11/22/16 06:45 Eos # 0.2 (0.0-0.7) 11/22/16 06:45 Baso # 0.02 K/mm3 (0.0-2.0) 11/22/16 06:45 PT 10.7 Seconds (9.9-11.8) 11/20/16 12:30 INR 0.99 (0.93-1.08) 11/20/16 12:30 APTT 27.6 Seconds (23.7-30.8) 11/20/16 12:30 Sodium 138 mmol/L (132-148) 11/22/16 06:45 Potassium 4.9 mmol/L (3.6-5.0) 11/22/16 06:45 Chloride 102 mmol/L (98-107) 11/22/16 06:45 Carbon Dioxide 25 mmol/L (21-33) 11/22/16 06:45 Anion Gap 16 (10-20) 11/22/16 06:45 BUN 65 mg/dL (7-21) H 11/22/16 06:45 Creatinine 6.6 mg/dL (0.5-1.4) H 11/22/16 06:45 Est GFR ( Amer) 8 11/22/16 06:45 Est GFR (Non-Af Amer) 6 11/22/16 06:45 Random Glucose 104 mg/dL (70-110) 11/22/16 06:45 Calcium 9.3 mg/dL (8.4-10.5) 11/22/16 06:45 Total Bilirubin 0.4 mg/dL (0.2-1.3) 11/22/16 06:45 AST 28 U/L (15-39) 11/22/16 06:45 ALT 25 U/L (7-56) 11/22/16 06:45 Alkaline Phosphatase 59 U/L (38-133) 11/22/16 06:45 Total Protein 6.7 g/dL (5.8-8.3) 11/22/16 06:45 Albumin 3.4 g/dL (3.0-4.8) 11/22/16 06:45 Globulin 3.3 gm/dL 11/22/16 06:45 Albumin/Globulin Ratio 1.0 (1.1-1.8) L 11/22/16 06:45 PTH Intact Whole Molec 115 pg/mL (14-64) H 11/20/16 12:30 Urine Color Yellow (YELLOW) 11/20/16 17:30 Urine Appearance Clear (CLEAR) 11/20/16 17:30 Urine pH 7.5 (4.7-8.0) 11/20/16 17:30 Ur Specific [place] 1.015 (1.005-1.035) 11/20/16 17:30 Urine Protein 100 mg/dL (<30 mg/dL) H 11/20/16 17:30 Urine Glucose (UA) Negative mg/dL (NEGATIVE) 11/20/16 17:30 Urine Ketones Negative mg/dL (NEGATIVE) 11/20/16 17:30 Urine Blood Trace-intact (NEGATIVE) H 11/20/16 17:30 Urine Nitrate Negative (NEGATIVE) 11/20/16 17:30 Urine Bilirubin Negative (NEGATIVE) 11/20/16 17:30 Urine Urobilinogen 0.2 E.U./dL (<1 E.U./dL) 11/20/16 17:30 Ur Leukocyte Esterase Negative Brad/uL (NEGATIVE) 11/20/16 17:30 Urine RBC 1 - 3 /hpf (0-2) 11/20/16 17:30 Urine WBC 0 - 2 /hpf (0-6) 11/20/16 17:30 Hep Bs Antigen Negative (NEGATIVE) 11/20/16 12:30 Hep Bs Antibody Negative (NEGATIVE) 11/20/16 12:30 Hep B Core IgM Ab Negative (NEGATIVE) 11/20/16 12:30 Hepatitis C Antibody Negative (NEGATIVE) 11/20/16 12:30 Blood Type B POSITIVE 11/20/16 12:30 Blood Type Confirm B POSITIVE 11/20/16 12:58 Antibody Screen Negative 11/20/16 12:30 BBK History Checked No verified bt 11/20/16 12:30 - Hospital Course Hospital Course: Ms. Adams is a 66 year old female with past medical history of ESRD, HTN, seizure, and hx of right sided renal tumor was sent to the emergency department by her android platform developer Dr. Maynard for hemodialysis due to failed AV vistulas placed in the past. The patient presented to the [facility] ED and was found to have elevated potassium. The patient received a right IJ tunnel dialysis catheter for HD. She then underwent 1 hour of HD for which she tolerated well. She received another session of HD while in the hospital and was discharged with plan to follow up with [facility] [place] [facility]. The patient was discharged with stable vital signs and hemodynamically stable. Discharge Exam - Head Exam Head Exam: ATRAUMATIC, NORMAL INSPECTION - Eye Exam Eye Exam: EOMI, PERRL - Respiratory Exam Respiratory Exam: NORMAL BREATHING PATTERN, UNREMARKABLE - Cardiovascular Exam Cardiovascular Exam: REGULAR RHYTHM, +S1, +S2 - GI/Abdominal Exam GI & Abdominal Exam: Normal Bowel Sounds, Unremarkable - Neurological Exam Neurological exam: Alert, CN II-XII Intact, Normal Gait, Oriented x3 - Psychiatric Exam Psychiatric exam: Normal Affect, Normal Mood - Skin Skin Exam: Dry, Normal Color, Warm Discharge Plan - Discharge Medications Prescriptions: cloNIDine [Catapres] 0.2 mg PO TID #90 tab hydrALAZINE [Apresoline] 100 mg PO TID #90 tab - Follow Up Plan Condition: FAIR Disposition: HOME/ ROUTINE Instructions: Chronic Kidney Disease (DC), Chronic Kidney Disease (GEN), Renal Failure Diet (DC), Hemodialysis for Acute Renal Failure (DC), Perma-cath Placement (DC), Perma-cath Placement (GEN) Additional Instructions: Please follow up with your android platform developer upon discharge. Please follow up with hemodialysis after discharge. Please continue to take medication as prescribed. Keep perma cath site clean and dry with appropriate bandaging. Return to hospital if perma cath is blocked and unable to have hemodialysis or if you develop any symptoms of infection including fever, chills, nausea or vomiting. Referrals: Colby Norman MD [Primary Care Provider] - <Facundo Diggs - Last Filed: 11/25/16 15:22> Provider - Provider Date of Admission: 11/20/16 12:28 Attending physician: Facundo Diggs MD Primary care physician: Colby Norman MD Hospital Course - Lab Results Lab Results: Micro Results 11/20/16 17:30 Urine,Random Urine Culture - Final No Growth (<1,000 CFU/ML) Most Recent Lab Values WBC 6.0 10^3/ul (4.5-11.0) 11/22/16 06:45 RBC 2.89 10^6/uL (3.5-6.1) L 11/22/16 06:45 Hgb 8.4 gm/dL (12.0-16.0) L 11/22/16 06:45 Hct 26.3 % (36.0-48.0) L 11/22/16 06:45 MCV 91.0 fL (80.0-105.0) 11/22/16 06:45 MCH 29.1 pg (25.0-35.0) 11/22/16 06:45 MCHC 31.9 g/dl (31.0-37.0) 11/22/16 06:45 RDW 13.0 % (11.5-14.5) 11/22/16 06:45 Plt Count 196 10^3/uL (120.0-450.0) 11/22/16 06:45 MPV 8.8 fl (7.0-11.0) 11/22/16 06:45 Gran % 45.6 % (50.0-68.0) L 11/22/16 06:45 Lymph % (Auto) 37.3 % (22.0-35.0) H 11/22/16 06:45 [place] % (Auto) 13.3 % (1.0-6.0) H 11/22/16 06:45 Eos % (Auto) 3.5 % (1.5-5.0) 11/22/16 06:45 Baso % (Auto) 0.3 % (0.0-3.0) 11/22/16 06:45 Gran # 2.71 (1.4-6.5) 11/22/16 06:45 Lymph # 2.2 (1.2-3.4) 11/22/16 06:45 [place] # 0.8 (0.1-0.6) H 11/22/16 06:45 Eos # 0.2 (0.0-0.7) 11/22/16 06:45 Baso # 0.02 K/mm3 (0.0-2.0) 11/22/16 06:45 PT 10.7 Seconds (9.9-11.8) 11/20/16 12:30 INR 0.99 (0.93-1.08) 11/20/16 12:30 APTT 27.6 Seconds (23.7-30.8) 11/20/16 12:30 Sodium 138 mmol/L (132-148) 11/22/16 06:45 Potassium 4.9 mmol/L (3.6-5.0) 11/22/16 06:45 Chloride 102 mmol/L (98-107) 11/22/16 06:45 Carbon Dioxide 25 mmol/L (21-33) 11/22/16 06:45 Anion Gap 16 (10-20) 11/22/16 06:45 BUN 65 mg/dL (7-21) H 11/22/16 06:45 Creatinine 6.6 mg/dL (0.5-1.4) H 11/22/16 06:45 Est GFR ( Amer) 8 11/22/16 06:45 Est GFR (Non-Af Amer) 6 11/22/16 06:45 Random Glucose 104 mg/dL (70-110) 11/22/16 06:45 Calcium 9.3 mg/dL (8.4-10.5) 11/22/16 06:45 Total Bilirubin 0.4 mg/dL (0.2-1.3) 11/22/16 06:45 AST 28 U/L (15-39) 11/22/16 06:45 ALT 25 U/L (7-56) 11/22/16 06:45 Alkaline Phosphatase 59 U/L (38-133) 11/22/16 06:45 Total Protein 6.7 g/dL (5.8-8.3) 11/22/16 06:45 Albumin 3.4 g/dL (3.0-4.8) 11/22/16 06:45 Globulin 3.3 gm/dL 11/22/16 06:45 Albumin/Globulin Ratio 1.0 (1.1-1.8) L 11/22/16 06:45 PTH Intact Whole Molec 115 pg/mL (14-64) H 11/20/16 12:30 Urine Color Yellow (YELLOW) 11/20/16 17:30 Urine Appearance Clear (CLEAR) 11/20/16 17:30 Urine pH 7.5 (4.7-8.0) 11/20/16 17:30 Ur Specific [place] 1.015 (1.005-1.035) 11/20/16 17:30 Urine Protein 100 mg/dL (<30 mg/dL) H 11/20/16 17:30 Urine Glucose (UA) Negative mg/dL (NEGATIVE) 11/20/16 17:30 Urine Ketones Negative mg/dL (NEGATIVE) 11/20/16 17:30 Urine Blood Trace-intact (NEGATIVE) H 11/20/16 17:30 Urine Nitrate Negative (NEGATIVE) 11/20/16 17:30 Urine Bilirubin Negative (NEGATIVE) 11/20/16 17:30 Urine Urobilinogen 0.2 E.U./dL (<1 E.U./dL) 11/20/16 17:30 Ur Leukocyte Esterase Negative Brad/uL (NEGATIVE) 11/20/16 17:30 Urine RBC 1 - 3 /hpf (0-2) 11/20/16 17:30 Urine WBC 0 - 2 /hpf (0-6) 11/20/16 17:30 Hep Bs Antigen Negative (NEGATIVE) 11/20/16 12:30 Hep Bs Antibody Negative (NEGATIVE) 11/20/16 12:30 Hep B Core IgM Ab Negative (NEGATIVE) 11/20/16 12:30 Hepatitis C Antibody Negative (NEGATIVE) 11/20/16 12:30 Blood Type B POSITIVE 11/20/16 12:30 Blood Type Confirm B POSITIVE 11/20/16 12:58 Antibody Screen Negative 11/20/16 12:30 BBK History Checked No verified bt 11/20/16 12:30 Attending/Attestation - Attestation I have personally seen and examined this patient.: Yes I have fully participated in the care of the patient.: Yes I have reviewed all pertinent clinical information, including history, physical exam and plan: Yes Notes (Text): 11/25/16 15:22 attending note; Patient seen and examined in dialysis unit. Patient is a 66-year-old female admitted with Malfunctioning AVF. patient got right perma cath for hemodialysis. patient had hemodialysis today. Outpatient hemodialysis arranged for Sunday, and Sunday at [facility]. Hypertension; Medication adjusted. Started on hydralazine. Continue clonidine. Medication prescription called in to the family pharmacy at [facility]. [phone] as per patient's request. Case discussed with lining caser/social sciences lecturer in detail for discharge planning. Follow-up with nephrology Dr. Dupree. follow-up with PMD . Diagnosis; End-stage renal disease on dialysis Right permacath placement Malfunctioning AV fistula Hypertension Anemia
== END 2016-11-22 17:18 | disposition home or self-care (01) ==
LOC: ED 10:12 → UNDOADMOB 12:28 → ERH 12:28 → 5RNO 18:53 → ERH 18:53 → OBSVTOIN 11-21 13:13 → INTOOBSV 11-21 13:13 → UNDODISOB 11-22 17:18
PROVIDERS: ADMIT Internal Medicine; ATTEND Internal Medicine
DX: T82.511A Breakdown (mechanical) of surgically created arteriovenous shunt, initial encounter (principal); N18.6 End stage renal disease; I13.11 Hypertensive heart and chronic kidney disease without heart failure, with stage 5 chronic kidney disease, or end stage renal disease; N25.81 Secondary hyperparathyroidism of renal origin; E87.2 Acidosis; D63.1 Anemia in chronic kidney disease; G40.909 Epilepsy, unspecified, not intractable, without status epilepticus; E87.5 Hyperkalemia; Y83.2 Surgical operation with anastomosis, bypass or graft as the cause of abnormal reaction of the patient, or of later complication, without mention of misadventure at the time of the procedure; E66.9 Obesity, unspecified; Z68.33 Body mass index [BMI] 33.0-33.9, adult; Z85.3 Personal history of malignant neoplasm of breast; Z90.11 Acquired absence of right breast and nipple; Z79.82 Long term (current) use of aspirin; Z87.891 Personal history of nicotine dependence; Z99.2 Dependence on renal dialysis
CPT/HCPCS: 36415; 36558; 76937; 77001; 80053; 81001; 83970; 85025; 85610; 85730; 86705; 86706; 86803; 86850; 86900; 87086; 87340; 93005; 99152; 99281; C1750; C1769; G0378; J0690; J0881; J1644; J2250; J3010

== ENCOUNTER 2018-09-11 09:41 | Outpatient (CLI) | payer MEDICARE | END 2018-09-11 09:42 | disposition home or self-care (01) | LOC: RAD 09:41 ==